=== PATIENT | male | born 2000 ===

== ENCOUNTER 2020-10-18 03:34 | Day surgery (SDC) | payer SELFPAY ==
[2020-10-18] VITALS (9 sets, daily range): BP systolic 109–128; BP diastolic 51–69; PULSE 64–83; TEMP 97.9–98.8
[~2020-10-18] VITALS: Ht 172.7 cm; Wt 80.0 kg
[2020-10-18 04:11] LABS: BASO % 0.3 % (0.0-2.0); EOS # 0.1 (0.0-0.7); EOS % 0.9 % (0-4.0); GRAN # 7.9 (1.4-6.5); GRAN % 67.6 % (42.2-75.2); HEMOGLOBIN 13.6 g/dl (13.5-18.0); LYMPH # 2.7 (1.2-3.4); LYMPH % 23.2 % (20.0-51.0); MEAN CELL VOLUME 89 fl (80.0-100.0); MEAN CORPUSCULAR HEMOGLOBIN 31 pg (27.0-31.0); MEAN CORPUSCULAR HGB CONC 35 g/dl (33.0-37.0); MEAN PLATELET VOLUME 10.8 fl (7.4-10.4); MONO # 0.9 (0.1-0.6); MONO % 7.7 % (1.7-9.3); PLATELET COUNT 225 K/mm3 (130-400); RED BLOOD COUNT 4.39 M/mm3 (4.20-5.60); REDCELL DISTRIBUTION WIDTH-CV 12.2 % (11.5-14.5)
[2020-10-18 04:26] LABS: LIPASE 78 U/L (23-300)
[2020-10-18 04:27] LABS: ALCOHOL(ethanol),MEDICAL < 10 mg/dL
[2020-10-18 05:03] LABS: ALBUMIN 4.4 gm/dL (3.5-5.0); BILIRUBIN,TOTAL 0.2 mg/dL (0.0-1.0); CREATININE, serum 1.04 (0.66-1.25); POTASSIUM 3.8 mmol/L (3.4-5.0); TOTAL PROTEIN 7.3 gm/dL (6.4-8.2)
--- NOTE | 2020-10-18 11:20 | NUR ---
Patient alert and oriented, answers questions appropriately. See assessment. Abdomen soft, tender, non distended. Bowel sounds active x4 quads. +Flatus. No c/o n/v. NPO since 329 this a.m. Chlorhexadine shower completed. Surgical consent signed. No c/o at this time.
--- NOTE | 2020-10-18 12:35 | NUR ---
Patient to surgery with surgical staff at this time.
[2020-10-18] MEDS ORDERED: MOTRIN 600600 MG/TAB PO (14:46)
[2020-10-18] MEDS ORDERED: PERCOCET 325 MG1 TA2 PO (14:47)
--- NOTE | 2020-10-18 18:30 | NUR ---
Reviewed discharge instructions with pt for primary nurse to include prescriptions and to make the follow up appointment. Discussed if he had voided, and he stated that he did but it was very painful. Pt stated that when he stopped the urine stream, the pain stopped, but then started back up again when he started voiding. Informed primary nurse of this.
--- NOTE | 2020-10-18 18:50 | NUR ---
Patient c/o sharp, shooting pain with urination. Didn't finish emptying bladder r/t pain. Dr Bergeron notifed. See orders.
[2020-10-18 19:54] LABS: MEAN CELL VOLUME 91 fl (80.0-100.0); MEAN CORPUSCULAR HGB CONC 34 g/dl (33.0-37.0); MEAN PLATELET VOLUME 9.4 fl (7.4-10.4); PLATELET COUNT 293 K/mm3 (130-400); RED BLOOD COUNT 3.67 M/mm3 (4.20-5.60); REDCELL DISTRIBUTION WIDTH-CV 12.1 % (11.5-14.5)
[2020-10-18 20:00] LABS: HEMATOCRIT 33.3 % (42.0-52.0); HEMOGLOBIN 11.4 g/dl (13.5-18.0); MEAN CORPUSCULAR HEMOGLOBIN 31 pg (27.0-31.0)
[2020-10-18 20:01] LABS: ALBUMIN 3.6 gm/dL (3.5-5.0); CALCIUM 7.7 mg/dL (8.4-10.2); CREATININE, serum 0.77 (0.66-1.25); PHOSPHOROUS 2.6 mg/dL (2.5-4.5); POTASSIUM 3.5 mmol/L (3.4-5.0)
--- NOTE | 2020-10-18 20:34 | NUR ---
PT VOIDED 300CC OF YELLOW URINE AND BLADDER SCANNED FOR 197CC. PT COMPLAINS OF LOWER ABD PAIN, PERCOCET GIVEN AT THIS TIME. AWARE HE WILL BE SPENDING THE NIGHT. IVF TO RT HAND INFUSING WITHOUT PROBLEM. BANDAID TO UMB LAP SITE D/T DRAINAGE. OTHER 2 LAP SITES GLUED AND DRY.
[2020-10-18 20:47] LABS: COLLECTION METHOD CLEAN CATCH
[2020-10-18 20:56] LABS: MUCOUS Present /lpf; PH 5 (5-8); SQUAMOUS EPITHELIAL None Seen /hpf; URINE APPEARANCE Clear; URINE BACTERIA None Seen /hpf; URINE BILIRUBIN Negative (NEGATIVE); URINE BLOOD Negative (NEGATIVE); URINE COLOR Yellow; URINE GLUCOSE 1+ (NEGATIVE); URINE KETONE 1+ (NEGATIVE); URINE LEUKOCYTE ESTERASE Negative (NEGATIVE); URINE NITRATE Negative (NEGATIVE); URINE PROTEIN(semi-quant) Negative (NEGATIVE); URINE RBC 0-2 /hpf; URINE UROBILINOGEN Negative (NEGATIVE)
--- NOTE | 2020-10-18 22:30 | NUR ---
PT REPORTS MINIMAL RELIEF OF PAIN WITH PERCOCET. DILAUDID 0.5MG IVP GIVEN AT THIS TIME. DC'D SL FROM LEFT AC.
--- NOTE | 2020-10-19 00:17 | NUR ---
PT REPORTS GOOD RELIEF WITH IV DILAUDID. ENCOURAGED AMBULATION.
--- NOTE | 2020-10-19 01:00 | NUR ---
AMBULATING IN HALLWAY WITH STEADY GAIT.
[2020-10-19 03:24] VITALS: BP 125/47; PULSE 60; TEMP 97.7
--- NOTE | 2020-10-19 04:52 | NUR ---
PT SITTING AT EDGE OF BED, REPORTS NO FURTHER PAIN WITH URINATION. HAVING DIFFUSE ABD DISCOMFORT. PERCOCET 2 TABS PO NOW. IVF CAPPED, PT EATING AND DRINKING WITHOUT PROBLEM.
[2020-10-19 07:14] LABS: BASO % 0.1 % (0.0-2.0); GRAN # 13.2 (1.4-6.5); GRAN % 86.5 % (42.2-75.2); HEMOGLOBIN 10.2 g/dl (13.5-18.0); LYMPH # 1.1 (1.2-3.4); LYMPH % 7.1 % (20.0-51.0); MEAN CELL VOLUME 95 fl (80.0-100.0); MEAN CORPUSCULAR HEMOGLOBIN 32 pg (27.0-31.0); MEAN CORPUSCULAR HGB CONC 33 g/dl (33.0-37.0); MEAN PLATELET VOLUME 10.1 fl (7.4-10.4); MONO # 0.9 (0.1-0.6); MONO % 5.8 % (1.7-9.3); PLATELET COUNT 283 K/mm3 (130-400); RED BLOOD COUNT 3.22 M/mm3 (4.20-5.60); REDCELL DISTRIBUTION WIDTH-CV 12.3 % (11.5-14.5)
[2020-10-19 07:15] LABS: HEMATOCRIT 30.5 % (42.0-52.0)
[2020-10-19 07:25] LABS: ALBUMIN 3.5 gm/dL (3.5-5.0); BILIRUBIN,TOTAL 0.3 mg/dL (0.0-1.0); CALCIUM 8.9 mg/dL (8.4-10.2); CREATININE, serum 0.9 (0.66-1.25); POTASSIUM 4.5 mmol/L (3.4-5.0); TOTAL PROTEIN 6.5 gm/dL (6.4-8.2)
[2020-10-19 07:57] VITALS: BP 103/49; PULSE 55; TEMP 97.5
--- NOTE | 2020-10-19 08:00 | NUR ---
Patient sitting up in bed eating breakfast. A&Ox4. VSS. IV CDI, Abdominal sites x3 CDI. Patient reporting discomfort in abdomen, did not request pain medication, but did ask when he can go home. Nurse informed the patient that the doctor will be notified. No further needs expressed. Call light within reach
--- NOTE | 2020-10-19 09:25 | NUR ---
Discharge instrutions reviewed with the patient. Patient verbalized an understanding. IV removed, tip intact, gauze and bandaid applied. Patient instructed to call nursing staff when ride is here. Call light within reach
--- NOTE | 2020-10-19 09:38 | NUR ---
Patient ambulated independently to the elevator with nursing staff. Discharge paperwork and personal belongings with the patient. No further needs expressed.
== END 2020-10-19 09:39 | disposition home or self-care (01) ==
LOC: COL.ER 03:34 → SDCO 09:54 → SURG 09:54 → SDCO 10-19 09:39
PROVIDERS: Emergency Medicine; Surgery
DX: K35.80 Unspecified acute appendicitis (principal); D72.829 Elevated white blood cell count, unspecified; Z90.89 Acquired absence of other organs
CPT/HCPCS: OP; J0690; J1100; J1170; J1885; J2250; J2270; J2405; J2543; J2550; J2704; J3010; J7030; J7040; J7120

== ENCOUNTER 2020-10-25 19:14 | Emergency (ER) | payer SELFPAY ==
[~2020-10-25] VITALS: Ht 172.7 cm; Wt 80.5 kg
[~2020-10-25 19:14] MED LIST: MOTRIN 600600 MG/TAB PO; PERCOCET 325 MG1 TA2 PO
[2020-10-25 19:40] VITALS: TEMP 98.5
[2020-10-25 19:47] LABS: COLLECTION METHOD CLEAN CATCH
[2020-10-25 20:01] LABS: PH 7 (5-8); SQUAMOUS EPITHELIAL 0-2 /hpf; URINE APPEARANCE Clear; URINE BACTERIA None Seen /hpf; URINE BILIRUBIN Negative (NEGATIVE); URINE BLOOD 3+ (NEGATIVE); URINE COLOR Straw; URINE GLUCOSE Negative (NEGATIVE); URINE KETONE Negative (NEGATIVE); URINE LEUKOCYTE ESTERASE Negative (NEGATIVE); URINE NITRATE Negative (NEGATIVE); URINE PROTEIN(semi-quant) Negative (NEGATIVE); URINE RBC None Seen /hpf; URINE UROBILINOGEN Negative (NEGATIVE)
[2020-10-25 21:02] LABS: BASO % 0.3 % (0.0-2.0); EOS # 0.2 (0.0-0.7); EOS % 1.9 % (0-4.0); GRAN # 8.9 (1.4-6.5); HEMOGLOBIN 12.3 g/dl (13.5-18.0); LYMPH # 2.1 (1.2-3.4); MEAN CELL VOLUME 93 fl (80.0-100.0); MEAN CORPUSCULAR HEMOGLOBIN 31 pg (27.0-31.0); MEAN CORPUSCULAR HGB CONC 33 g/dl (33.0-37.0); MEAN PLATELET VOLUME 9.2 fl (7.4-10.4); MONO # 1.1 (0.1-0.6); MONO % 8.8 % (1.7-9.3); PLATELET COUNT 376 K/mm3 (130-400); RED BLOOD COUNT 3.98 M/mm3 (4.20-5.60)
[2020-10-25 21:03] LABS: HEMATOCRIT 36.9 % (42.0-52.0)
[2020-10-25 21:12] LABS: ALBUMIN 4.8 gm/dL (3.5-5.0); BILIRUBIN,TOTAL 1.7 mg/dL (0.0-1.0); CALCIUM 9.6 mg/dL (8.4-10.2); CREATININE, serum 0.97 (0.66-1.25); POTASSIUM 3.9 mmol/L (3.4-5.0); TOTAL PROTEIN 8.4 gm/dL (6.4-8.2)
[2020-10-25] MEDS ORDERED: MIRALAX238G PO (22:08)
[2020-10-25 23:22] VITALS: BP 136/78; PULSE 66
== END 2020-10-25 23:22 | disposition home or self-care (01) ==
LOC: COL.ER 19:14
PROVIDERS: Emergency Medicine; Nurse Practitioner Family
DX: R10.84 Generalized abdominal pain (principal); R31.9 Hematuria, unspecified; Z90.49 Acquired absence of other specified parts of digestive tract
CPT/HCPCS: Q9967